=== PATIENT | male | born 1950 | race Asian ===

== ENCOUNTER 2019-01-04 05:30 | Day surgery (SDC) | payer OTHER ==
[~2019-01-04 05:30] MED LIST: CEFAZOLIN 2 GM/50 ML (PMX) 50 ML IVPB; SOD CHLORIDE 0.9% 1,000 ML IV
[2019-01-04] MEDS ORDERED: BUPIVACAINE 0.25% (MPF) 30 ML INJ (07:04)
[2019-01-04] MEDS ORDERED: DIPHENHYDRAMINE 50 MG INJ IV (08:00)
[2019-01-04] MEDS ORDERED: HYDROmorphONE 1 MG/5 ML IV SYRINGE IV (08:00)
[2019-01-04] MEDS ORDERED: FENTAnyl 50 MCG/ML VIAL IV ×3 (08:00)
[2019-01-04] MEDS ORDERED: ALBUTEROL 0.083% (NEB) 2.5 MG/3 ML AMP HHN (08:00)
[2019-01-04] MEDS ORDERED: METOCLOPRAMIDE 10 MG INJ IV (08:00)
[2019-01-04] MEDS: MEPERIDINE 25 MG INJ IV (08:52)
[2019-01-04] MEDS: ONDANSETRON 4 MG INJ IV (08:52)
[2019-01-04] MEDS ORDERED: HYDROCODONE/APAP (5/325) TAB PO (09:00)
[2019-01-04] MEDS: HYDROmorphONE 1 MG/5 ML IV SYRINGE IV ×2 (09:06→09:14)
== END 2019-01-04 10:30 | disposition home or self-care (01) ==
LOC: SDS 05:30
DX: K80.20 Calculus of gallbladder without cholecystitis without obstruction (principal); I10 Essential (primary) hypertension; E78.5 Hyperlipidemia, unspecified
CPT/HCPCS: 47562; 88304